=== PATIENT | female | born 2000 | race Two or more races ===

== ENCOUNTER 2023-02-18 09:37 | Outpatient (REF) | payer OTHER, SELFPAY ==
--- NOTE | ~2023-02-18 | MR_ITS ---
EXAMINATION: MR head/brain wo con CLINICAL INFORMATION: Concussion. Loss of consciousness. Self-reported history of fainting, striking head 2 months ago with worsening headaches, left temporal and posterior left ear area. COMPARISON: None. TECHNIQUE: Routine unenhanced MRI of the brain FINDINGS: No intracranial hemorrhage, tumors or acute infarcts identified. The ventricles and sulci are normal in size and configuration. No focal parenchymal lesions of the brain or abnormal extra-axial fluid collections. The craniocervical junction cerebellar tonsils are normal in configuration. Normal appearance of the pituitary and posterior pituitary bright spot. No marrow signal abnormalities identified. Susceptibility weighted images reveal no evidence of acute or chronic hemorrhage within the brain parenchyma. Normal flow-related signal intensity is identified in the major intracranial vessels and dural sinuses. The orbits and globes are normal in appearance. No significant mucosal thickening or retained secretions identified within the paranasal sinuses, mastoid air cells and middle ear cavities. MR/MR head/brain wo con IMPRESSION: Normal unenhanced MRI of the brain.
== END 2023-02-18 09:38 | disposition home or self-care (01) ==
LOC: HO.MRI 09:37
PROVIDERS: PCP Family Medicine; Visit Provider Family Medicine
DX: S06.0X0D Concussion without loss of consciousness, subsequent encounter (principal)
CPT/HCPCS: 70551